=== PATIENT | female | born 1950 | race Caucasian/White ===

== ENCOUNTER 2020-05-16 06:19 | Outpatient (RCR) | payer MEDICARE, OTHER, SELFPAY ==
[2020-05-16] MEDS: COVID-19 VACC, MRNA(PFIZER)/PF 30 MCG/0.3 ML SYRINGE IM (09:16)
[2020-06-06] MEDS: COVID-19 VACC, MRNA(PFIZER)/PF 30 MCG/0.3 ML SYRINGE IM (09:07)
== END 2020-05-16 23:59 ==
LOC: IMMUN 06:19
PROVIDERS: PCP Family Medicine; Referring Provider Family Medicine; Visit Provider Family Medicine
DX: Z23 Encounter for immunization (principal)
CPT/HCPCS: 0001A; 0002A

== ENCOUNTER 2021-11-28 18:10 | Emergency (ER) | payer MEDICARE, OTHER, SELFPAY ==
[2021-11-28 18:11] VITALS: BP 171/85; PULSE 108; RESP 16; TEMP 36.9; O2SAT 94; BMI 32.1
--- NOTE | 2021-11-28 18:31 | ED.VIS.LOWEX ---
HPI History of Present Illness Chief Complaint: Lower Extremity Injury Narrative Narrative: Patient presents with his because of left upper thigh pain radiating down to his knee that has had since Wednesday, 4 days ago. He denies any injury. He states that he has had problems with a bad back in the past but is not currently having any back pain. He describes dull, achy pain in his left buttocks radiating down around his hip and to the lateral aspect of his left thigh. He also states that at times his knee feels tense and tight. He denies any chest pain or shortness of breath. No change in color to his leg. He called the [facility] nurse, who told him the part of the protocol is for him to get an ultrasound. He presents to the emergency department wanting an ultrasound of his left lower extremity. No swelling of his foot or calf, no pain in his calf. [facility] Medical History Diabetes mellitus HLD (hyperlipidemia) HTN (hypertension) Allergy/AdvReac Type Severity Reaction Status Date / Time No Known Allergies Allergy Verified 11/28/21 18:14 Surgical History H/O right heart catheterization Hx of appendectomy Social History Smoking Status: Former smoker ROS ROS ED ROS Narrative Constitutional: No fever, no chills. HEENT: No sore throat. No neck pain. No loss of vision. No rhinorrhea. Cardiovascular: No chest pain. No palpitations. No pedal edema. Respiratory: No cough, no shortness of breath. Abdominal: No abdominal pain. No nausea. No vomiting. Genitourinary: No dysuria. No hematuria. Musculoskeletal: No myalgias. No arthralgias. Left buttocks pain radiating towards knee along left lateral thigh. Neurologic: No headaches. No dizziness. No lightheadedness. Skin: No rash. No change in color. Psychiatric: No depression. No anxiety. EXAM Physical Exam Narrative Exam Narrative: Afebrile. Vital signs noted. HEENT: Normocephalic. Atraumatic. PERRL, EOMI. Neck soft and supple. No point tenderness or step off. Cardiovascular: Regular rate and rhythm. No murmurs, rubs, or gallops appreciated. Respiratory: No tachypnea. Lungs clear to auscultation bilaterally. Gastrointestinal: Abdomen soft, nontender, with normoactive bowel sounds. No rebound or guarding. Neurological: Awake. Alert. Nonfocal, nonlateralizing. Skin: No rash. Normal color. No pallor. Musculoskeletal: No pedal edema. Full range of motion extremities. Straight leg raising negative bilaterally. Neurovascular intact left lower extremity with EHL intact. Palpable dorsalis pedis pulse. Full range of motion of knee and hip joint. No overt swelling or erythema. No palpable cord. Mild tenderness to palpation in left sciatic notch. Const Vital Signs: 11/28/21 18:11 11/28/21 18:11 Temperature 98.4 F 98.4 F Temperature Source Temporal Temporal Pulse Rate 108 H 108 H Respiratory Rate 16 16 Blood Pressure 171/85 H 171/85 H Blood Pressure Mean 113 113 Pulse Ox 94 94 Oxygen Delivery Method Room Air Room Air MDM MDM MDM Narrative Medical decision making narrative: I do think that the patient has more of a sciatica pain. He is having more radicular pain as it is on the lateral aspect of his left thigh radiating towards his knee. Ultrasound was obtained of the left lower extremity. It is negative for DVT. At this point in time, I feel he can be discharged safely home with follow-up to his primary care physician. Return instructions to the emergency department were reviewed. Disposition is discharged home in stable condition. Radiography Diagnostic Testing: Clinical Impression(s) from Imaging Studies Venous Duplex 11/28/21 18:32 IMPRESSION: Normal venous Doppler ultrasound of the lower extremity. Electronically Signed: Kumar Candelario MD at 19:25 EDT , Discharge Plan Triage Chief Complaint: Lower Extremity Injury ED Provider: Johny Rojas Dx/Rx/DC Orders Clinical Impression: Left thigh pain, Sciatica of left side Instructions: ED Pain, Acute, Uncertain Cause, ED Sciatica Primary Care Provider: Immanuel Gill Referrals: Immanuel Gill DO [Primary Care Provider] - 3-5 Days if not improving Disposition Disposition: Home, Self Care
--- NOTE | 2021-11-28 18:32 | US_ITS ---
STUDY: VENOUS DOPPLER ULTRASOUND - LEFT LOWER EXTREMITY REASON FOR EXAM: Male, 71 years old. undefined -- PAIN- LT LOWER LEG TECHNIQUE: Ultrasound evaluation of the deep vein system to include moraes-scale imaging and compression was performed. Moraes-scale imaging and Doppler sonographic evaluation, including duplex spectral analysis and qualitative color flow sonography, was performed. COMPARISON: None. FINDINGS: Common Femoral Vein: Normal compression, spontaneity and augmentation. Normal color Doppler. Common Femoral Vein/Greater Saphenous Junction: Normal compression, spontaneity and augmentation. Normal color Doppler. Deep Femoral Vein: Normal compression, spontaneity and augmentation. Normal color Doppler. Femoral Proximal: Normal compression, spontaneity and augmentation. Normal color Doppler. Femoral Middle: Normal compression, spontaneity and augmentation. Normal color Doppler. Femoral Distal: Normal compression, spontaneity and augmentation. Normal color Doppler. Popliteal Vein: Normal compression, spontaneity and augmentation. Normal color Doppler. Posterior Tibial Vein: Normal compression, spontaneity and augmentation. Normal color Doppler. Peroneal Vein: Normal compression, spontaneity and augmentation. Normal color Doppler. US/Venous Duplex Imag/Limited/Uni IMPRESSION: Normal venous Doppler ultrasound of the lower extremity. Electronically Signed: Kumar Candelario MD at 19:25 EDT ,
[2021-11-28 20:11] VITALS: RESP 18
[2021-11-28 20:47] VITALS: RESP 18
== END 2021-11-28 20:54 | disposition home or self-care (01) ==
PROVIDERS: Emergency Provider Emergency Medicine; PCP Family Medicine; Visit Provider Emergency Medicine
DX: M79.652 Pain in left thigh (principal); M54.32 Sciatica, left side; Z87.891 Personal history of nicotine dependence
CPT/HCPCS: 93971; 99282